=== PATIENT | male | born 2005 | race Caucasian/White ===

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

== ENCOUNTER 2023-05-19 20:15 | Emergency (ER) | payer BC, SELFPAY ==
--- NOTE | ~2023-05-19 | CT_ITS ---
EXAMINATION: CT abdomen pelvis w con DATE: 05/19/2023 21:30 INDICATION: Right lower quadrant abdominal pain TECHNIQUE: Computed tomography (CT) of the abdomen and pelvis was performed with 100 mL Omnipaque-350 intravenous contrast. Automated exposure control and iterative reconstruction technique were employe d. The dose-length product was 258.04 mGy-cm. COMPARISON: None FINDINGS: Lung bases are clear. Heart size is normal. No pericardial or pleural effusion. Mild right gynecomast ia. Liver, gallbladder, spleen, pancreas, bilateral adrenal glands and kidneys are normal. There is p rominent inflammatory stranding surrounding the appendix distal to a large calcified appendicolith. T here appears to be a discontinuity in the wall of the more distal appendix with small amount of adjac ent extraluminal gas along side the appendix consistent with likely ruptured acute appendicitis. No o rganized abscess. Remainder of the bowels are unremarkable. Bladder is normal. Mild lumbar levocurvat ure. IMPRESSION: 1. Likely ruptured acute appendicitis. Reviewed, dictated and finalized at location A. [employer]
[2023-05-19 20:15] VITALS: BP 119/70; PULSE 110; RESP 16; TEMP 38.8; O2SAT 96
--- NOTE | 2023-05-19 20:25 | ED.ABDPAIN ---
HPI - Abdominal Pain General Chief Complaint: Abdominal Pain Stated Complaint: abd pain Time Seen by Provider: 05/19/23 20:25 Source: patient Mode of arrival: ambulatory Limitations: no limitations History of Present Illness HPI narrative: 18-year-old male with no significant past medical history presents to the ER with a 2 day history of -- right lower quadrant abdominal pain. Pain is continuous. No exacerbating or relieving factors. -- fever with a T-max of 38.8?. -- Nausea without any vomiting. MD elicited complaint: abdominal pain Pertinent past history: none Onset (ago): day(s) ( Two days ago) Pain Consistency: constant Location: RLQ Severity: severe Quality: aching Radiation: none Migration to: no migration Exacerbating factors: nothing Relieving factors: nothing Associated symptoms: nausea and fever Related Data Allergies Allergy/AdvReac Type Severity Reaction Status Date / Time amoxicillin Allergy Unknown RASH Verified 02/05/17 19:15 azithromycin Allergy Unknown RASH Verified 02/05/17 19:15 Review of Systems Review of Systems: All systems reviewed & are unremarkable except as noted in HPI and below Constitutional: Constitutional: Reports as per HPI and Reports no additional constitutional complaints Eyes: Eyes: Reports as per HPI and Reports no additional eye complaints ENT: Reports system reviewed and no additional complaints, except as documented and Reports as per HPI Cardiovascular: Cardiovascular: Reports as per HPI and Reports no additional cardiovascular complaints Respiratory: Respiratory: Reports as per HPI and Reports no additional respiratory complaints Gastrointestinal: Gastrointestinal: Reports as per HPI, Reports no additional gastrointestinal complaints, Reports abdominal pain and Reports nausea Genitourinary: Genitourinary: Reports no additional male genitourinary complaints and Reports as per HPI Musculoskeletal: Musculoskeletal: Reports no additional musculoskeletal complaints and Reports as per HPI Integumentary/Breasts: Skin/Breast: Reports system reviewed and no additional complaints, except as docu and Reports as per HPI Neurologic: Reports system reviewed and no additional complaints, except as documented and Reports as per HPI Psychiatric: Psychiatric: Reports no additional psychiatric complaints and Reports as per HPI Endocrine: Endocrine: Reports no additional endocrine complaints and Reports as per HPI Hematologic/Lymphatic: Hematologic/Lymphatic: Reports no additional hematologic/lymphatic complaints and Reports as per HPI Allergic/Immunologic: Allergic/Immunologic: Reports no additional allergic/immunologic complaints and Reports as per HPI Exam Const: General: ill appearing Orientation/consciousness: patient oriented x3 Limitations: no limitations HENMT: Head: normal to inspection Ears: external ears normal Face/Nose/Sinus: Normal external nose present Mouth: Yes Normal oral and palatal mucosa present Throat: posterior oropharynx normal Eyes: Conjunctivae: conjunctivae normal Pupils: Equal, round and reactive pupils present EOM: EOMs intact bilaterally Direct Ophthalmoscopy: no photophobia Neck: Neck: normal visual inspection and no lymphadenopathy Chest: Chest palpation & inspection: normal inspection of the chest Resp: Effort & Inspection: normal respiratory effort Auscultation: clear to auscultation bilaterally Cardio: Rate: regular rate Rhythm: regular rhythm GI: GI Palp: Yes Soft to palpation Auscultation: normal bowel sounds Other: RLQ abdominal tenderness with gaurding : General: Yes no CVA tenderness Male General Exam: Yes normal external exam Scrotum: scrotum normal Testes: Testes normal and epididymides normal Back/Spine/Pelvis: Back: no CVA tenderness Skin: General skin exam: normal color Rashes: no rashes Wounds: no wounds Neuro: General: patient oriented x3, moves all extremities, no meningeal signs, no focal motor defic
[2023-05-19] MEDS: LACTATED RINGERS 1,000 ML 999 ML IV CONT (20:36)
[2023-05-19 20:48] LABS: Basophils Absolute Auto 0.04 K/mm3 (0.00-0.10); Basophils Percent Auto 0.3 % (0.0-1.0); Eosinophils Absolute Auto 0.06 K/mm3 (0.02-0.50); Eosinophils Percent Auto 0.5 % (1.0-6.0); Hematocrit 39.1 % (40.0-54.0); Hemoglobin 14.1 g/dL (14.0-18.0); Immature Granulocyte Absolute 0.06 K/mm3 (0.00-0.00); Immature Granulocyte Percent A 0.5 % (0.0-0.0); Lymphocytes Absolute Auto 0.85 K/mm3 (1.10-4.50); Lymphocytes Percent Auto 6.8 % (18.0-42.0); Mean Corpuscular HGB Conc 36.1 g/dL (32.0-36.0); Mean Corpuscular Hemoglobin 30.9 pg (27.0-31.0); Mean Corpuscular Volume 85.7 fL (78.0-102.0); Monocytes Absolute Auto 1.11 K/mm3 (0.10-0.90); Monocytes Percent Auto 8.8 % (2.0-11.0); Neutrophils Absolute Auto 10.4 K/mm3 (1.7-7.2); Neutrophils Percent Auto 83.1 % (50.0-70.0); Platelet Count Result 171 K/mm3 (150-420); Red Blood Count 4.56 M/mm3 (4.70-6.10); Red Cell Distribution Width 12.3 % (11.6-14.4); White Blood Count 12.6 K/mm3 (4.8-10.8)
[2023-05-19] MEDS: ACETAMINOPHEN 325 MG TABLET 650 MG PO (20:59)
[2023-05-19 21:02] LABS: INR 1.2; Partial Thromboplastin Time 30.6 SEC (23.90-30.70)
[2023-05-19 21:04] LABS: Alanine Aminotransferase 17 U/L (16-63); Albumin Level 3.7 g/dL (3.4-5.0); Alkaline Phosphatase 52 U/L (46-116); Anion Gap 11 mmol/L (8-16); Aspartate Amino Transferase 19 U/L (15-37); Blood Urea Nitrogen 11 mg/dL (7-18); Carbon Dioxide 27 mmol/L (21-32); Chloride 93 mmol/L (98-108); Estimated CRCL calculation 77 ml/min; Estimated Glomerular Filt Rate > 60; Glucose 123 mg/dL (70-99); Lipase 15 U/L (16-77); Osmolality Calculated 272 mOsm/kg (285-295); Potassium 3.4 mmol/L (3.5-5.1); Sodium 131 mmol/L (136-145); Total Protein 7.3 g/dL (6.4-8.2)
[2023-05-19 21:09] LABS: Lactic Acid Reflex 1.5 mmol/L (0.4-2.0)
[2023-05-19] MEDS: LACTATED RINGERS 1,000 ML 150 ML IV CONT (21:28)
[2023-05-19 21:43] VITALS: TEMP 38.2
[2023-05-19] MEDS: levoFLOXacin 500 MG/D5W 100 ML 500 MG/100 ML BAG 100 MG IVPB (21:59)
[2023-05-19] MEDS: metroNIDAZOLE 500 MG/ISO 100ML 500 MG/100 ML BAG 100 MG IVPB (22:07)
[2023-05-19 22:14] VITALS: BP 136/85; PULSE 91; RESP 20; TEMP 37.9; O2SAT 100
[2023-05-19] MEDS: ONDANSETRON INJ 4 MG/2 ML VIAL IV PUSH (22:22)
[2023-05-19] MEDS: MORPHINE SULFATE (*CRX) 2 MG/ML INJ IV PUSH (22:22)
--- NOTE | 2023-07-06 11:22 | PC.NURSE ---
ADDENDUM 05-19-2023 lactated ringers 1liter #2, RAC, started 2147, infused 150ml. pt transferred and departed at 2247. 850ml sent with pt to transfer facility. 05-19-2023 levaquin 500mg/100ml, RAC, started 215, infused 100ml, stopped 2240. 05-19-2023 flagyl 500mg/100ml, LAC, started 2207, infused 100ml, stopped 2247.
== END 2023-05-19 22:47 | disposition short-term general hospital (02) ==
PROVIDERS: Emergency Provider Internal Medicine Critical Care Medicine
DX: K35.32 Acute appendicitis with perforation, localized peritonitis, and gangrene, without abscess (principal)
CPT/HCPCS: 36415; 74177; 80053; 83605; 83690; 85025; 85610; 85730; 96365; 96368; 96375; 99285; A9270; J1836; J1956; J2270; J2405; J7120; Q9967

== ENCOUNTER 2023-05-19 22:56 | Observation (INO) | payer BC, SELFPAY ==
[2023-05-19 23:29] VITALS: BP 131/75; PULSE 66; RESP 18; TEMP 36.6; O2SAT 98
[2023-05-19] MEDS: SODIUM CHLORIDE 0.9% IV 1,000 ML 100 ML IV CONT (23:29)
[2023-05-19] MEDS: MORPHINE SULFATE (*CRX) 2 MG/ML INJ IV PUSH (23:34)
[2023-05-19] MEDS: ONDANSETRON INJ 4 MG/2 ML VIAL IV PUSH (23:39)
--- NOTE | 2023-05-19 23:42 | ADMGEN ---
This patient, Rex Crum, was admitted to Medical Room 248-01. Patient/family oriented to hospital policies and general routines including ID bracelet, bed and alarms, visiting hours, pain management, procedures, bathroom and other care routines, personal items, smoking policy, room service/diet, and visiting hours. Information on how to activate the Rapid Response Team has been discussed. Patient/Family are encouraged to report perceived risks to care and to ask questions if they do not understand what they are told or what they should do.
[2023-05-20] VITALS (14 sets, daily range): BP systolic 119–145; BP diastolic 58–78; PULSE 83–104; RESP 12–20; TEMP 36.7–38; O2SAT 95–100
[2023-05-20] MEDS: MORPHINE SULFATE (*CRX) 2 MG/ML INJ IV PUSH ×8 (00:26→13:28)
--- NOTE | 2023-05-20 02:33 | PC.NURSE ---
PT FAMILY CONTINUES TO CALL TO THE NURSES STATION ABOUT PT STATUS. GRANDMOTHER IS A NURSE HERE AT [facility] AND CONTINUES TO CALL MYSELF AND WORT EXTRACTOR ASKING WHY THE PT IS NOT HAVING SURGERY TONIGHT. FAMILY IS ALSO CALLING STATING PT IS IN PAIN BUT PT HIMSELF HAS NOT BEEN CALLING UP TO THE STATION TO ASK FOR PAIN MEDS. PT HAS Q1HR PAIN MEDS PRN AND HAS HAD 3 DOSES SINCE COMING TO THE FLOOR AROUND 2300. WHEN ASSESSING PT PAIN HE APPEARS TO BE SLEEPING AND OR TALKING ON THE PHONE LOOKING RELAXED.
[2023-05-20] MEDS: metroNIDAZOLE 500 MG/ISO 100ML 500 MG/100 ML BAG 100 MG IVPB ×2 (05:30→17:45)
[2023-05-20] MEDS: ONDANSETRON INJ 4 MG/2 ML VIAL IV PUSH ×3 (05:55→20:36)
[2023-05-20 06:03] LABS: Basophils Percent Auto 0.3 % (0.2-1.2); Hematocrit 36.9 % (42.0-52.0); Hemoglobin 13.2 g/dL (14.0-18.0); Immature Granulocyte Absolute 0.06 K/mm3 (0.00-0.031); Immature Granulocyte Percent A 0.5 % (0-0.5); Lymphocytes Absolute Auto 0.75 K/mm3 (0.9-3.2); Lymphocytes Percent Auto 6.5 % (18.3-44.2); Mean Corpuscular HGB Conc 35.8 g/dl (32-36); Mean Corpuscular Hemoglobin 30.5 pg (26-34); Mean Corpuscular Volume 85.2 fl (80-100); Mean Platelet Volume 10.2 fl (7.4-10.4); Monocytes Absolute Auto 1.2 K/mm3 (0.1-0.6); Monocytes Percent Auto 9.9 % (2.6-8.5); Neutrophils Absolute Auto 9.6 K/mm3 (1.3-6.7); Neutrophils Percent Auto 82.8 % (45.5-73.1); Platelet Count Result 154 k/mm3 (150-375); Red Blood Count 4.33 M/mm3 (4.6-6.20); Red Cell Distribution Width 12.7 % (11.5-14.5); White Blood Count 11.6 K/mm3 (4.5-10.0)
[2023-05-20 06:09] LABS: Anion Gap 8 mmol/L (8-16); Blood Urea Nitrogen 11 mg/dL (9-20); Calcium 9.1 mg/dL (8.4-10.2); Carbon Dioxide 26 mmol/L (22-30); Chloride 99 mmol/L (98-107); Estimated Glomerular Filt Rate > 60; Glucose 98 mg/dL (65-110); Potassium 3.6 mmol/L (3.4-5.0); Sodium 133 mmol/L (137-145)
--- NOTE | 2023-05-20 09:30 | PM.IMHP ---
H&P: HPI History of Present Illness Date/Time: 05/20/23 09:30 Chief Complaint: Acute appendicitis Narrative: The patient is a 18-year-old male presenting to an outside emergency department complain right lower quadrant abdominal pain. The patient reports the pain has been ongoing for the last few days and progressively worsening. The patient reports the pain is now localized, constant, and severe in the right lower quadrant. The patient reports associated nausea and poor appetite. The patient reports subjective fevers and chills at home. The patient denies any previous similar episodes. Workup in the emergency department, including imaging, is significant for perforated appendicitis. Review of Systems Review of Systems: All systems reviewed & are unremarkable except as noted in HPI and below PMFSH Family History Family History Other Unknown family medical history Social History Social History Smoking status: Never smoker Alcohol intake: never Substance use: never Lack of Transportation: No Lack of Food: Never True Current Housing: I Have Housing Concerned About Future Housing: No Difficulty Paying Gas/Electric Bills: No Difficulty Paying for Meds: No Currently Unemployed: No Education: High School Diploma/GED Difficulty w/ Childcare or Family Care: No Spiritual care concerns: No Comments PMH - none PSH - none FH - no CRC, IBD Meds Home Medications and Allergies Home Medications Medication Instructions Recorded Confirmed Type No Home Medications 05/19/23 05/19/23 History Allergies Allergy/AdvReac Type Severity Reaction Status Date / Time amoxicillin Allergy Unknown RASH Verified 02/05/17 19:15 azithromycin Allergy Unknown RASH Verified 02/05/17 19:15 Vital Signs Vital Signs - 24 hr 05/19/23 23:29 05/20/23 00:11 05/20/23 06:00 Temperature 36.6 C 36.8 C Pulse Rate 66 96 Respiratory Rate 18 18 Blood Pressure 131/75 122/58 L Pulse Oximetry 98 100 97 Oxygen Delivery Room Air 05/20/23 08:24 Temperature Pulse Rate 86 Respiratory Rate Blood Pressure 122/73 Pulse Oximetry 95 Oxygen Delivery Exam Const: General: cooperative, no acute distress and uncomfortable HENMT: Head: normal to inspection, normocephalic and atraumatic Eyes: General: appearance normal, both eyes and all related structures Neck: Neck: normal visual inspection, full ROM and no lymphadenopathy Resp: Effort & Inspection: normal respiratory effort Auscultation: clear to auscultation bilaterally Cardio: Rate: regular rate Rhythm: regular rhythm GI: Inspection: normal to inspection and distended GI Palp: Yes abdominal tenderness, Yes Soft to palpation, Yes Tenderness to palpation present (GI), Yes Guarding due to palpation present (GI) and No Rigid due to palpation Skin: General skin exam: normal color and no rashes or lesions noted Neuro: General: patient oriented x3 and CN's II-XI intact bilaterally Extrem: General: normal to inspection and full ROM H&P: Results Labs Labs: Short CBC 05/20/23 Range/Units 05:15 WBC 11.6 H (4.5-10.0) K/mm3 Hgb 13.2 L (14.0-18.0) g/dL Hct 36.9 L (42.0-52.0) % Plt Count 154 (150-375) k/mm3 BMP 05/20/23 05:15 Sodium 133 L Potassium 3.6 Chloride 99 Carbon Dioxide 26 BUN 11 Creatinine 0.80 Glucose [address] scan - abdomen: My impression: Acute perforated appendicitis Assessment and Plan Assessment and plan (1) Acute perforated appendicitis: Code(s): K35.32 - Acute appendicitis with perforation, localized peritonitis, and gangrene, without abscess Status: Acute Assessment and Plan: admit, IV abx, OR for emergent appendectomy, washout
--- NOTE | 2023-05-20 09:34 | WPDHPUPDATE1 ---
History and Physical Update Update Date/Time: 05/20/23 09:34 History and Physical has been reviewed, including an updated exam of the patient. There are NO changes in the patient's condition. Risks, benefits, and alternatives have been discussed and questions answered. Patient agrees to proceed with procedure.
--- NOTE | 2023-05-20 10:08 | WPDANESEPPF ---
Anes - Initial Pre Proc Eval Procedure: Operation Date: 05/20/23 10:30 Proposed Procedures p Laparoscopic Appendectomy - Michaela Branch MD Date/Time: 05/20/23 10:08 Surgeon: Michaela Branch MD Pre Op Diagnosis: Ruptured Appendix Patient Data Age: 18 Gender: M Height: Weight: 75.5 kg Last Vital Signs Temp 36.8 C 05/20/23 06:00 Pulse 86 05/20/23 08:24 Resp 18 05/20/23 06:00 BP 122/73 05/20/23 08:24 Pulse Ox 95 05/20/23 08:24 O2 Del Method Room Air 05/20/23 00:11 Allergies Allergy/AdvReac Type Severity Reaction Status Date / Time amoxicillin Allergy Unknown RASH Verified 02/05/17 19:15 azithromycin Allergy Unknown RASH Verified 02/05/17 19:15 Home Medications Medication Instructions Recorded Confirmed Type No Home Medications 05/19/23 05/19/23 History Laboratory Tests 05/20/23 05:15 WBC 11.6 H K/mm3 (4.5-10.0) RBC 4.33 L M/mm3 (4.6-6.20) Hgb 13.2 L g/dL (14.0-18.0) Hct 36.9 L % (42.0-52.0) MCV 85.2 fl (80-100) MCH 30.5 pg (26-34) MCHC 35.8 g/dl (32-36) RDW 12.7 % (11.5-14.5) Plt Count 154 k/mm3 (150-375) MPV 10.2 fl (7.4-10.4) Immature Gran % (Auto) 0.5 % (0-0.5) Neut % (Auto) 82.8 H % (45.5-73.1) Lymph % (Auto) 6.5 L % (18.3-44.2) Young % (Auto) 9.9 H % (2.6-8.5) Eos % (Auto) 0.0 % (0-4.4) Baso % (Auto) 0.3 % (0.2-1.2) Lymph # (Auto) 0.75 L K/mm3 (0.9-3.2) Young # (Auto) 1.2 H K/mm3 (0.1-0.6) Eos # (Auto) 0.0 K/mm3 (0-0.3) Baso # (Auto) 0.0 K/mm3 (0.0-0.1) Abs Immat Gran (auto) 0.06 H K/mm3 (0.00-0.031) Absolute Neuts (auto) 9.6 H K/mm3 (1.3-6.7) Absolute Nucleated RBC 0.0 K/mm3 (0.0-0.012) Nucleated RBC % 0.0 % (0.0-0.2) Sodium 133 L mmol/L (137-145) Potassium 3.6 mmol/L (3.4-5.0) Chloride 99 mmol/L (98-107) Carbon Dioxide 26 mmol/L (22-30) Anion Gap 8 mmol/L (8-16) BUN 11 mg/dL (9-20) Creatinine 0.80 mg/dL (0.7-1.3) Estim Creat Clear Calc Not Reportable Estimated GFR > 60 (59 - ) Glucose 98 mg/dL (65-110) Calcium 9.1 mg/dL (8.4-10.2) Patient hx anesthesia problems: none Family hx anesthesia problems: none Results Review: All pre-operative results and documents have been reviewed as part of the pre-operative evaluation. ON LICENSE OF [facility] Family History Family History Other Unknown family medical history Social History Social History Smoking status: Never smoker Alcohol intake: never Substance use: never Lack of Transportation: No Lack of Food: Never True Current Housing: I Have Housing Concerned About Future Housing: No Difficulty Paying Gas/Electric Bills: No Difficulty Paying for Meds: No Currently Unemployed: No Education: High School Diploma/GED Difficulty w/ Childcare or Family Care: No Spiritual care concerns: No Anes - Eval Final PreProcedure Day of Procedure 05/20/23 10:08 Patient weight: overweight Heart: regular rate and rhythm Lungs: clear to auscultation Airway: Mallampati scale class II Neurological: alert and oriented Last oral intake: >/= 8 hours ASA classification: II Emergent: yes Anesthetic plan: proceed Anesthesia type and monitoring: general ETT and standard monitoring Results Review: All pre-operative results and documents have been reviewed as part of the pre-operative evaluation. Informed Consent: The patient's anesthetic plan and its attendant risks and benefits were discussed with the patient/family/POA. Questions were solicited and answers provided to the satisfaction of the patient/family/POA.
[2023-05-20] MEDS: BUPIVACAINE/EPINEPHRINE 0.5% 50 ML VIAL 30 ML INFILTRATE (10:38)
--- NOTE | 2023-05-20 11:15 | W.PM.PROC2 ---
Procedure Note - Detailed Date of Procedure 05/20/23 Pre-op Diagnosis Acute perforated appendicitis Post-op Diagnosis Same Procedure Performed laparoscopic appendectomy, washout Surgeon Michaela Branch MD Anesthesia General Indications 18-year-old male presenting to the hospital with acute perforated appendicitis Findings acute appendicitis with distal perforation, no abscess Description of Procedure The patient was taken to the operating room and placed in the supine position. After adequate induction of general anesthesia, the patient was prepped and draped in the normal sterile fashion. A time-out was then done to verify the patient's identity, as well as the procedure being performed. I began by making a 5 mm incision in the infraumbilical region, through this a Veress needle was placed in the peritoneal cavity. CO2 gas was then insufflated and after adequate pneumoperitoneum was achieved the Veress needle was removed. Then placed a 5 mm Optiview trocar under direct visualization into the peritoneal cavity. I then insufflated through this trocar site and the endoscope was placed into the trocar. Under direct visualization, placed 2 further 5 mm suprapubic port as well as an additional 12 mm port in the left lower abdomen. At this point identified the cecum, I retracted the cecum both medially and superiorly allowing me to expose the appendix. The appendix was noted to be very dilated and inflamed especially towards the tip. There was noted to be a perforation near the tip of the appendix, however no abscess was noted. There was noted to be adhesions to the right lower quadrant abdominal wall and these were taken down both sharply and bluntly. I then was able to locate the base of the appendix with the cecum. I created a window with the [place] dissector between the appendix itself and the mesoappendix. I then transected the mesoappendix with a white vascular staple load. The Endo-HUGO was then reloaded with a blue staple load and I transected the base of the appendix. Once the specimen was completely detached, an endo-pouch was placed into the 12 mm port site and the specimen was removed through the endo-pouch. The appendiceal specimen will be sent to pathology for further review. I then copiously irrigated the right lower quadrant. Hemostasis was noted at both staple lines no other pathology was seen in this area. I then moved the camera to the suprapubic port to check our its port of entry. No iatrogenic injury or other pathology was noted in the upper abdomen. Given that there was no abscess, the decision was made not to leave a drain. I then closed the 12 mm port site with a [place] code and 0 Vicryl suture under direct visualization. At this point, the abdomen was desufflated and all ports were removed. All port sites were closed with 4 Monocryl subcuticular suture. Dermabond was placed on all wounds. The patient tolerated the procedure well and was extubated in the operating room postop. He will be sent to the recovery room in stable condition. Estimated Blood Loss 10 Drains No Packing No Pathology Yes Complications No immediate complications Condition Stable Disposition PACU [facility] Billing Surgery - Charge Forward: Surgery Billing
[2023-05-20] MEDS: LACTATED RINGERS 1,000 ML 30 ML IV CONT (11:28)
--- NOTE | 2023-05-20 11:48 | SUR.PHASEI ---
1148: Simple mask removed.
[2023-05-20] MEDS: fentaNYL CITRATE INJ (*CRX) 100 MCG/2 ML VIAL 25 MCG IV PUSH ×3 (12:02→12:32)
[2023-05-20] MEDS: HYDROcodone/acetaminophen (*CRX) 5-325 MG TABLET 1 TAB PO ×2 (15:20→20:36)
[2023-05-20] MEDS: diphenhydrAMINE HCl INJ 50 MG/ML VIAL 25 MG IV PUSH (15:49)
[2023-05-20] MEDS: levoFLOXacin 500 MG/D5W 100 ML 500 MG/100 ML BAG 100 MG IVPB (20:37)
[2023-05-21] MEDS: metroNIDAZOLE 500 MG/ISO 100ML 500 MG/100 ML BAG 100 MG IVPB ×2 (00:12→08:44)
[2023-05-21 04:04] VITALS: BP 128/60; PULSE 58; RESP 20; TEMP 36.8; O2SAT 98
[2023-05-21] MEDS: HYDROcodone/acetaminophen (*CRX) 5-325 MG TABLET 1 TAB PO (04:50)
[2023-05-21 05:15] LABS: Hematocrit 36.4 % (42.0-52.0); Hemoglobin 12.9 g/dL (14.0-18.0); Mean Corpuscular HGB Conc 35.4 g/dl (32-36); Mean Corpuscular Hemoglobin 30.4 pg (26-34); Mean Corpuscular Volume 85.6 fl (80-100); Mean Platelet Volume 10.3 fl (7.4-10.4); Platelet Count Result 149 k/mm3 (150-375); Red Blood Count 4.25 M/mm3 (4.6-6.20); Red Cell Distribution Width 12.9 % (11.5-14.5); White Blood Count 10.8 K/mm3 (4.5-10.0)
[2023-05-21 05:37] LABS: Anion Gap 10 mmol/L (8-16); Blood Urea Nitrogen 12 mg/dL (9-20); Calcium 9.1 mg/dL (8.4-10.2); Carbon Dioxide 26 mmol/L (22-30); Chloride 97 mmol/L (98-107); Estimated Glomerular Filt Rate > 60; Glucose 108 mg/dL (65-110); Potassium 3.9 mmol/L (3.4-5.0); Sodium 133 mmol/L (137-145)
[2023-05-21 08:00] VITALS: O2SAT 98
--- NOTE | 2023-05-21 10:48 | PM.DS ---
DS: Admitting Diagnosis Discharge Date 05/21/2023 Admitting Diagnosis Acute perforated appendicitis DS: Discharge Diagnosis Discharge Diagnosis (1) Acute perforated appendicitis: Code(s): K35.32 - Acute appendicitis with perforation, localized peritonitis, and gangrene, without abscess Status: Acute Assessment and Plan: status post laparoscopic appendectomy, continue routine postoperative care, home with p.o. antibiotics and p.o. analgesia, as well as Colace, follow-up 2 weeks DS: Summary Hospital Course Reason for hospitalization: acute perforated appendicitis Hospital Course: The patient is a 18-year-old male presenting to the hospital complaining of severe right lower quadrant abdominal pain. Workup, including imaging, significant for acute perforated appendicitis. The patient was admitted to the surgical service and started on IV antibiotics. Upon evaluation, was decided the patient would need emergent appendectomy. The patient was taken to the operating room and laparoscopic appendectomy, washout was performed, please see full operative report for details of procedure. Postoperatively the patient did well and was transferred back to the surgical floor. On postoperative day 1. , the patient is tolerating a diet and his pain is well controlled p.o. analgesia. The patient is up and ambulating without difficulty. He will be sent with p.o. analgesia and antibiotics, as well as Colace. The patient will follow up me in 2 weeks. Status at Discharge Functional status at discharge: independent ambulation Overall status at discharge: patient is progressing back to baseline Time Spent with Patient Time attestation: Total time spent providing and/or coordinating discharge services: Time spent: Less than 30 minutes Exam Const: General: cooperative, comfortable and no acute distress Eyes: General: appearance normal, both eyes and all related structures Neck: Neck: normal visual inspection, full ROM and no lymphadenopathy Resp: Effort & Inspection: normal respiratory effort Auscultation: clear to auscultation bilaterally Cardio: Rate: regular rate Rhythm: regular rhythm GI: Inspection: normal to inspection, distended and incision GI Palp: Yes abdominal tenderness, Yes Soft to palpation, Yes Tenderness to palpation present (GI), No Guarding due to palpation present (GI), No Rigid due to palpation and No Rebound tenderness present DS: Data Data Completed and Pending Pending studies at discharge: Pending at discharge 05/20/23 10:32 Surgical [PTH] Routine Labs on day of discharge: Labs from last 24 hours 12/03/23 04:40 WBC 10.8 H RBC 4.25 L Hgb 12.9 L Hct 36.4 L MCV 85.6 MCH 30.4 MCHC 35.4 RDW 12.9 Plt Count 149 L MPV 10.3 Sodium 133 L Potassium 3.9 Chloride 97 L Carbon Dioxide 26 Anion Gap 10 BUN 12 Creatinine 0.70 Estim Creat Clear Calc Not Reportable Estimated GFR > 60 Glucose 108 Calcium 9.1 Discharge Plan Discharge Attending physician on discharge: Michaela Branch Discharging Clinician: Michaela Branch Patient Disposition: Home, Self-Care Activity: may shower and other - see discharge instructions Diet: as tolerated Wound Care Instructions: incision open to air Discharge Instructions: DISCHARGE INSTRUCTION SHEET FOR HERNIA, GALLBLADDER AND APPENDIX SURGERIES DR. BRANCH PATIENT TO TAKE HOME 1. May shower in 24 hours, no soaking in bath x 2weeks. 2. Call office for: Wound increasingly painful or bleeding Vomiting Fever of greater than 101 degrees 3. If no bowel movement for three days, take 1 oz. (30 ml) Milk of Magnesia or MiraLax 17g 1 to 2 times daily. 4. No heavy lifting > 10-15 pounds x 6 weeks for hernia repairs and 2 weeks for laparoscopic cholecystectomy or appendectomy. 5. No driving for 3 days or while taking narcotic pain medications. 6. Ice to surgical site for 48 hours (30 min on, then 3
== END 2023-05-21 11:36 | disposition home or self-care (01) ==
PROVIDERS: Admitting Provider Surgery; Visit Provider Surgery
PROC: 0DTJ4ZZ Resection of Appendix, Percutaneous Endoscopic Approach (ICD-10-PCS; CPT 44970; principal; 2023-05-20 10:30)
DX: K35.32 Acute appendicitis with perforation, localized peritonitis, and gangrene, without abscess (principal); E66.3 Overweight
CPT/HCPCS: 44970; 36415; 80048; 85025; 85027; 88304; 96365; A9270; G0378; G0379; J0330; J1100; J1200; J1836; J1956; J2250; J2270; J2405; J2704; J3010; J7030; J7120